=== PATIENT | female | born 1980 | race Caucasian/White ===

== ENCOUNTER 2020-11-14 10:41 | Outpatient (CLI) | payer OTHER ==
--- NOTE | 2020-11-14 11:27 | MRI ---
MRI lumbar spine noncontrast: HISTORY: Low back pain, radiating down right leg x2 months COMPARISON: 08/07/2020 FINDINGS: Appropriate T1 marrow signal intensity of the lumbar vertebra. Lumbar spine vertebral body heights ar e maintained. No fracture. No significant STIR hyperintensity to suggest ligamentous injury or vertebral body edema. Appropriate signal intensity of the visualized paraspinal muscles. Conus medullaris terminates at the inferior aspect of L1. T12-L1:Adequate disc hydration. No significant central canal stenosis or significant neural foraminal narrowing. L1-L2:Minimal disc desiccation without significant loss of disc space height. There is a stable broad -based disc bulge with associated annular fissure. Mild central canal stenosis. Patent bilateral neural foramina. L2-L3:Stable minimal disc desiccation without significant loss of disc space height. There is a broad -based disc bulge with a small right paracentral, right foraminal disc herniation. There is an associated annular fissure. There is mild central canal stenosis. Mild narrowing of the right subarti cular zone with partial obscuration the traversing right L3 nerve root. Mild right foraminal narrowing due to disc material. Patent left neural foramen. The degree of right foraminal stenosis is unchanged. However, there is increased narrowing of the right subarticular zone. L3-L4:Adequate disc hydration. No significant central canal stenosis or significant neural foraminal narrowing. L4-L5:Adequate disc hydration. No significant loss of disc space height. Broad-based disc bulge, liga mentum flavum thickening and facet hypertrophy. Mild central canal stenosis. Stable annular fissure involving the right extraforaminal aspect of the disc. Annular fissure abuts the extraforaminal right L4 nerve root, unchanged. Stable mild bilateral neural foraminal narrowing. L5-S1:Disc desiccation with mild loss of disc space height. Broad-based disc bulge with a stable cent ral/left subarticular disc herniation with associated annular fissure. Mass effect and contact upon the traversing left S1 nerve root. There is bilateral facet hypertrophy. Stable bilateral neural fora reilly narrowing. IMPRESSION: Overall multilevel degenerative changes of the lumbar spine as described above. There is evidence of multilevel annular fissures with associated disc herniation. There is slight increased narrowing of the right subarticular zone at L2-L3 with partial obscuration of the traversing right L3 nerve root. Transcribed Date/Time: 11/14/2020 11:58 AM
== END 2020-11-14 10:42 | disposition home or self-care (01) ==
LOC: TBSIIMAG 10:41
PROVIDERS: ATTEND Neurological Surgery
DX: M51.16 Intervertebral disc disorders with radiculopathy, lumbar region (principal); M47.26 Other spondylosis with radiculopathy, lumbar region; M48.061 Spinal stenosis, lumbar region without neurogenic claudication
CPT/HCPCS: 72148

== ENCOUNTER 2020-11-29 10:34 | Day surgery (SDC) | payer OTHER ==
[~2020-11-29 10:34] MED LIST: Dexamethasone 20 MG/5 ML VIAL ONE; Glycopyrrolate 0.2 MG/ML 5 ML SYRINGE ONE; Metoclopramide HCl 10 MG/2 ML VIAL ONE; Ondansetron PF 4 MG/2 ML Vial ONE; PROPOFOL 200 MG/20 ML VIAL ONE; Rocuronium Bromide 10 MG/ML (10ML VIAL) ONE; diphenhydrAMINE 50 MG/ML VIAL ONE
[2020-11-29] MEDS ORDERED: Bupivacaine PF 0.5% 30 ML VIAL ONE (10:49)
[2020-11-29] MEDS ORDERED: Thrombin 5000 UNITS/5 ML VIAL ONE (10:49)
[2020-11-29] MEDS ORDERED: EPINEPHrine 1 MG/ML AMP ONE (10:49)
[2020-11-29] MEDS ORDERED: Midazolam HCl 2 mg/2 ml Vial ONE (11:00)
[2020-11-29] MEDS ORDERED: Fentanyl 100 MCG/2 ML VIAL ONE ×2 (11:15→13:37)
[2020-11-29] MEDS ORDERED: HYDROmorphone 2 MG/ML VIAL ONE (13:10)
[2020-11-29] MEDS ORDERED: Ondansetron PF 4 MG/2 ML Vial ONE (13:37)
[2020-11-29] MEDS ORDERED: HYDROcodone/Acetaminophen 5/325 mg Tablet ONE ×2 (15:31→15:32)
== END 2020-11-29 15:50 | disposition home or self-care (01) ==
LOC: SDC 10:34
PROVIDERS: ATTEND Neurological Surgery
PROC: 0SB20ZZ Excision of Lumbar Vertebral Disc, Open Approach (ICD-10-PCS; principal; 2020-11-29)
DX: M51.16 Intervertebral disc disorders with radiculopathy, lumbar region (principal); I10 Essential (primary) hypertension; F90.9 Attention-deficit hyperactivity disorder, unspecified type; M34.9 Systemic sclerosis, unspecified; Z87.891 Personal history of nicotine dependence; Z79.899 Other long term (current) drug therapy; Z98.1 Arthrodesis status
CPT/HCPCS: 76000; J0171; J0690; J1100; J1170; J1200; J2250; J2405; J2704; J2765; J3010; J3370; J3490; S0020

== ENCOUNTER 2023-01-26 15:15 | Outpatient (CLI) | payer BC, OTHER | END 2023-01-26 15:16 | disposition home or self-care (01) | LOC: TBSIIMAG 15:15 | PROVIDERS: ATTEND Neurological Surgery | DX: M47.26 Other spondylosis with radiculopathy, lumbar region (principal); R29.890 Loss of height | CPT/HCPCS: 72110 ==